=== PATIENT | female | born 1985 | race Two or more races ===

== ENCOUNTER 2017-02-24 12:32 | Emergency (ER) | payer OTHER ==
[2017-02-24 14:00] VITALS: BP 105/51
== END 2017-02-24 14:00 | disposition home or self-care (01) ==
LOC: ED 12:32
DX: S09.90XA Unspecified injury of head, initial encounter (principal); V49.49XA Driver injured in collision with other motor vehicles in traffic accident, initial encounter; Y93.89 Activity, other specified; Y99.8 Other external cause status; Y92.89 Other specified places as the place of occurrence of the external cause